=== PATIENT | male | born 1980 | race Caucasian/White ===

== ENCOUNTER 2023-01-10 12:40 | Emergency (ER) | payer BC, OTHER ==
[~2023-01-10] VITALS: Ht 188 cm; Wt 95.3 kg
[2023-01-10 12:46] VITALS: BP 133/88
--- NOTE | 2023-01-10 12:51 | NUR ---
WC TO BED 2
[2023-01-10] MEDS ORDERED: ONDANSETRON 4 MG/2 ML VIAL IVP ONE (13:00)
[2023-01-10] MEDS ORDERED: PIPERACILLIN/TAZOBACTAM 3.375 GM in DEXTROSE 5% 50 ML IV ONE (13:00)
[2023-01-10] MEDS ORDERED: MORPHINE SULFATE 4 MG/ML SYR IVP ONE (13:00)
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
[2023-01-10 13:25] LABS: PROTHROMBIN TIME 10.2 secs (10.8-13.4)
--- NOTE | 2023-01-10 13:35 | NUR ---
US tech at bedside
--- NOTE | 2023-01-10 13:56 | NUR ---
RAD at bedside
[2023-01-10 13:57] LABS: BASOPHILS # (AUTO) 0.1 K/uL (0.00-0.22); BASOPHILS % (AUTO) 0.8 % (0.0-2.0); EOSINOPHILS # (AUTO) 0.1 K/uL (0-0.4); EOSINOPHILS % (AUTO) 0.8 % (0.0-4.0); HEMATOCRIT 34.4 % (36-52); HEMOGLOBIN 11.3 g/dL (12.0-18.0); LYMPHOCYTES # (AUTO) 1.1 K/uL (2.0-11.5); LYMPHOCYTES % (AUTO) 13.6 % (20.5-51.1); MEAN CORPUSCULAR HEMOGLOBIN 28 pg (27-31); MEAN CORPUSCULAR HGB CONC 33 g/dL (33-37); MEAN CORPUSCULAR VOLUME 86.1 fL (80-94); MONOCYTES # (AUTO) 0.6 K/uL (0.8-1.0); MONOCYTES % (AUTO) 7.3 % (1.7-9.3); NEUTROPHILS # (AUTO) 6.2 K/uL (1.8-7.7); NEUTROPHILS % (AUTO) 77.5 % (42.2-75.2); PLATELET COUNT (AUTO) 203 K/uL (140-450); RED BLOOD CELL COUNT(AUTO) 3.99 MIL/uL (4.20-6.10); RED CELL DISTRIBUTION WIDTH 14.4 % (11.6-13.7)
--- NOTE | 2023-01-10 14:09 | NUR ---
Unable to obtain IV access. Patient requesting for oral antibiotics and refusing Morphine 4mg IV due to previous history of IV substance abuse. Patient requesting Motrin at this time. RONALDO Mckenzie notified.
[2023-01-10 14:38] LABS: ALBUMIN 3.2 g/dL (3.4-5.0); CARBON DIOXIDE 29.1 mmol/L (21-32); CREATININE 0.9 mg/dL (0.6-1.3); POTASSIUM 4.1 mmol/L (3.5-5.1); TOTAL BILIRUBIN 0.3 mg/dL (0.0-1.0)
[2023-01-10] MEDS ORDERED: PIPERACILLIN/TAZOBACTAM 3.375 GM VIAL IV ONE (14:56)
[2023-01-10] MEDS ORDERED: ONDANSETRON 4 MG/2 ML VIAL ONE (14:57)
--- NOTE | 2023-01-10 14:57 | NUR ---
Patient unable to void x 2 attempts. Refusing straight catheter at this time.
[2023-01-10] MEDS ORDERED: CEPH-588 PO (15:46)
[2023-01-10] MEDS ORDERED: SULF-58 PO (15:46)
--- NOTE | 2023-01-10 16:03 | NUR ---
Patient signed against medical advice form. Written and verbal after care instructions given and explained. Patient alert, oriented and verbalized understanding of instructions. Wheel Chair Assisted with steady gait. ID band removed. Patient advised to follow up with PMD. Rx of given. Patient educated on indication of medication including possible reaction and side effects. Opportunity to ask questions provided and answered. Copies of RAD, US, blood work given to patient. Rx Keflex and Bactrim discussed and given to patient.
--- NOTE | 2023-01-10 16:03 | NUR ---
Patient does not wish to proceed with medical care recommended by RONALDO Mckenzie. Patient given information related to possible complications, up to and including , which could occur as a result of leaving hospital at this time. Patient verbalizes understanding of risks involved leaving against medical advice. Patient has signed AMA form.
== END 2023-01-10 16:03 | disposition left against medical advice (07) ==
LOC: MED 12:40
DX: S81.831A Puncture wound without foreign body, right lower leg, initial encounter (principal); S81.832A Puncture wound without foreign body, left lower leg, initial encounter; L03.116 Cellulitis of left lower limb; L03.115 Cellulitis of right lower limb; X58.XXXA Exposure to other specified factors, initial encounter; Y93.89 Activity, other specified; Y92.89 Other specified places as the place of occurrence of the external cause; Y99.8 Other external cause status
CPT/HCPCS: 36415; 71045; 80053; 82550; 82553; 83605; 83880; 84484; 85025; 85610; 85651; 85730; 87040; 90471; 90715; 93005; 93970; 96365; 96375; 99285; J2405; J2543; Q0092